=== PATIENT | male | born 1985 | race Hispanic/Latino ===

== ENCOUNTER 2019-11-21 23:24 | Emergency (ER) | payer SELFPAY ==
--- NOTE | 2019-11-22 00:59 | ER ---
Nurse's Notes [facility] Name: Charles Wood Age: 34 yrs Sex: Male : 1985 Arrival Date: 11/21/2019 Time: 23:25 Bed 12 Private MD: Diagnosis: Streptococcal pharyngitis Presentation: 11/20 23:34 Acuity: DIVYA 3 sg 23:34 Chief complaint: Patient states: I have some swelling in my throat and felt like was sg going to pass out and had some shortness of breath, reports low grade fever at home. Coronavirus screen: Surgical mask placed on patient. Patient moved to private room, placed in contact and droplet isolation with eye protection until further assessment. Patient denies a cough. Patient reports shortness of breath or difficulty breathing. Patient reports a measured and/or subjective temperature greater than 100.4F. Patient denies travel on a cruise ship or to a country the [facility] currently lists as an affected area. Patient denies contact with known and/or suspected case of COVID-19. Ebola Screen: Patient negative for fever greater than or equal to 101.5 degrees Fahrenheit, and additional compatible Ebola Virus Disease symptoms Patient denies exposure to infectious person. Patient denies travel to an Ebola-affected area in the 21 days before illness onset. No symptoms or risks identified at this time. Initial Sepsis Screen: Does the patient meet any 2 criteria? No. Patient's initial sepsis screen is negative. Does the patient have a suspected source of infection? No. Patient's initial sepsis screen is negative. Risk Assessment: Do you want to hurt yourself or someone else? Patient reports no desire to harm self or others. Onset of symptoms was November 22, 2019. Care prior to arrival: None. Transition of care: patient was not received from another setting of care. 23:34 Method Of Arrival: Ambulatory sg Historical: - Allergies: 23:33 No Known Allergies; sg - Home Meds: 23:33 None [Active]; sg - PMHx: 23:33 None; sg - PSHx: 23:33 None; sg - Immunization history:: Adult Immunizations up to date. - Social history:: Smoking status: Reported history of juuling and/or vaping. Screenin:33 Abuse screen: Denies threats or abuse. Denies injuries from another. Nutritional sg screening: No deficits noted. Tuberculosis screening: No symptoms or risk factors identified. Never had TB. Fall Risk None identified. Assessment: 23:33 General: Appears in no apparent distress. well groomed, well developed, well nourished, sg Behavior is calm, cooperative, appropriate for age. Pain: Complains of pain in sore throat Quality of pain is described as aching, sore throat. Neuro: Level of Consciousness is awake, alert, obeys commands, Oriented to person, place, time, Entry Level Mechanical Engineer are equal bilaterally Speech is normal, Facial symmetry appears normal. Cardiovascular: Capillary refill is brisk in bilateral fingers Patient's skin is warm and dry. Chest pain is denied. Respiratory: Airway is patent Respiratory effort is even, unlabored, Respiratory pattern is regular, symmetrical. GI: Abdomen is round non-distended. : No signs and/or symptoms were reported regarding the genitourinary system. EENT: Nares are clear bilaterally Oral mucosa is moist. Throat is reddened has enlarged tonsils bilaterally. Derm: Skin is pink, warm \\T\\ dry. Musculoskeletal: Circulation, motion, and sensation intact. Range of motion: intact in all extremities. 23:40 Reassessment: pt requesting that a COVID 19 swab be obtained while a flu and strep swab sg are sent. pt educated that he will need to see the provider as a COVID 19 swab is a specific test as opposed to having the COVID 19 swab, due to guidelines for treatment. pt stated understanding. Respiratory: Reports shortness of breath on exertion. 11/21 00:55 Reassessment: pt family member on speaker phone requesting this patient get a shot of sg abx instead of a prescription. educated pt on order for abx here in the ED and a script to take at home, pt stated understanding, pt family states " yes you can get a shot. you dont have to take pills.". 00:56 Reassessment: pt requesting a COVID 19 swab at this time, notified, sg speaking with pt at this time. pt family on speaker phone reports " so you cant test him here because you know he has strep? youre full of shit." pt provided with discharge instructions and testing options posted on the [facility] website. pt dc to home as ordered. Vital Signs: 11/20 23:33 BP 132 / 74; Pulse 115; Resp 26; Temp 99.4; Pulse Ox 95% on R/A; Weight 131.54 kg; sg Height 5 ft. 11 in. (180.34 cm); 11/21 01:00 BP 130 / 70; Pulse 97; Resp 18; Temp 98.8; Pulse Ox 99% on R/A; sg 11/20 23:33 Body Mass Index 40.45 (131.54 kg, 180.34 cm) sg ED Course: 11/20 23:25 Patient arrived in ED. ds1 23:32 Arm band placed on. sg 23:34 Triage completed. sg 23:35 Flu and/or RSV swab sent to lab. Strep swab sent to lab. sg 23:40 Patient has correct armband on for positive identification. Bed in low position. Call sg light in reach. Side rails up X2. Pulse ox on. NIBP on. pt placed to recliner, awaiting ED provider evaluation. 11/21 00:02 Keaton Paez MD is Attending Physician. tw4 00:02 Maikel Hernandez RN is Primary Nurse. sg 01:00 No provider procedures requiring assistance completed. Patient did not have IV access sg during this emergency room visit. Administered Medications: 01:04 Drug: Augmentin 875 mg Route: PO; sg Outcome: 00:59 Discharge ordered by . tw4 01:00 Discharged to home ambulatory. sg 01:00 Condition: good 01:00 Instructed on discharge instructions, follow up and referral plans. safety practices. 01:08 Patient left the ED. sg Signatures: Maikel Hernandez RN RN Patricia Muniz ds1 Keaton Paez MD MD tw4 Corrections: (The following items were deleted from the chart) 01:20 01:19 Patient left the ED. sg sg 01:32 11/20 23:33 EENT: No signs and/or symptoms were reported regarding the EENT system. sg sg
--- NOTE | 2019-11-22 00:59 | EDPHYS ---
Physician Documentation [facility] Name: Charles Wood Age: 34 yrs Sex: Male : 1985 Arrival Date: 11/21/2019 Time: 23:25 Bed 12 Private MD: ED Physician Keaton Paez Historical: - Allergies: 11/20 23:33 No Known Allergies; sg - Home Meds: 23:33 None [Active]; sg - PMHx: 23:33 None; sg - PSHx: 23:33 None; sg - Immunization history:: Adult Immunizations up to date. - Social history:: Smoking status: Reported history of juuling and/or vaping. Vital Signs: 23:33 BP 132 / 74; Pulse 115; Resp 26; Temp 99.4; Pulse Ox 95% on R/A; Weight 131.54 kg; sg Height 5 ft. 11 in. (180.34 cm); 11/21 01:00 BP 130 / 70; Pulse 97; Resp 18; Temp 98.8; Pulse Ox 99% on R/A; sg 11/20 23:33 Body Mass Index 40.45 (131.54 kg, 180.34 cm) MDM: 00:09 Patient medically screened. tw4 11/20 23:36 Order name: Flu sg 11/20 23:36 Order name: Strep; Complete Time: 00:56 11/21 00:56 Interpretation: Abnormal: GP A STREP SC \T\nbsp; GROUP A STREP SCREEN-- \T\nbsp; \T\nbsp; tw4 POSITIVE. Administered Medications: 01:04 Drug: Augmentin 875 mg Route: PO; sg Disposition: 11/22/19 00:59 Discharged to Home. Impression: Streptococcal pharyngitis. - Condition is Stable. - Discharge Instructions: Pharyngitis, Strep Throat. - Prescriptions for Augmentin 875- 125 mg Oral Tablet - take 1 tablet by ORAL route every 12 hours for 10 days; 20 tablet. - Work release form, Medication Reconciliation Form, Thank You Letter, Antibiotic Education, Prescription Opioid Use form. - Follow up: Private Physician; When: Upon discharge from the Emergency Department; Reason: Recheck today's complaints, Continuance of care, Re-evaluation by your physician. - Problem is new. - Symptoms have improved. Signatures: Dispatcher [employer] EDMaikel Bethea RN RN sg Keaton Paez MD MD tw4 Corrections: (The following items were deleted from the chart) 01:08 00:59 11/22/2019 00:59 Discharged to Home. Impression: Streptococcal pharyngitis. sg Condition is Stable. Forms are Medication Reconciliation Form, Thank You Letter, Antibiotic Education, Prescription Opioid Use. Follow up: Private Physician; When: Upon discharge from the Emergency Department; Reason: Recheck today's complaints, Continuance of care, Re-evaluation by your physician. Problem is new. Symptoms have improved. tw4 01:19 01:08 11/22/2019 00:59 Discharged to Home. Impression: Streptococcal pharyngitis. sg Condition is Stable. Discharge Instructions: Pharyngitis, Strep Throat. Prescriptions for Augmentin 875-125 mg Oral Tablet - take 1 tablet by ORAL route every 12 hours for 10 days; 20 tablet. and Forms are Thank You Letter, Antibiotic Education, Prescription Opioid Use, Medication Reconciliation Form, Work release form. Follow up: Private Physician; When: Upon discharge from the Emergency Department; Reason: Recheck today's complaints, Continuance of care, Re-evaluation by your physician. Problem is new. Symptoms have improved. sg
[2019-11-22] MEDS ORDERED: AMOX/K CLAV 875 MG TAB ONE (01:20)
[2019-11-22 01:57] VITALS: BP 130/70; TEMP 98.8; O2SAT 99
== END 2019-11-22 01:19 | disposition home or self-care (01) ==
LOC: ER 23:24
DX: J02.0 Streptococcal pharyngitis (principal); F17.290 Nicotine dependence, other tobacco product, uncomplicated
CPT/HCPCS: 87081; 87804; 99284

== ENCOUNTER 2024-01-03 01:32 | Emergency (ER) | payer SELFPAY ==
--- OUTSIDE RECORDS SUMMARY | 2024-01-03 01:35 | XMS REPORT | Continuity of Care Document ---
Author Name Unknown Address [address] [facility] [address] th[address] Address [address] [facility] [address] [place] [address] Care Team Providers Care [employer] Installer Name Role Phone Pcp, Patient Does Not Have A Primary Care Physic adrienne SYLVIA WEEKS Attending Clinician Unavailab Sylvia Sutton DO Attending Clinician [phone] Allergies, Adverse Reactions, Alerts Allergy Name Allergy Type Status Severity Reaction(s) Onset Date Inactive Date Treating Clinician Comments Source NO KNOWN ALLERGIE S Drug Class Active [facility] Social History Social Habit Start Date Stop Date Quantity Comments Source Exposure to SARS-CoV-2 (event) 2022-07-05 00:00:00 2022-07-15 01:03:00 Not sure [facility] Sex Assigned At 1985 00:00:00 1985 00:00:00 [facility] Smoking Status Start Date Stop Date Source Tobacco smoking consumption unknown [facility] Medications Ordered Medication Name Filled Medication Name Start Date Stop Date Current Medication? Ordering Clinician Indication Dosage Frequency Signature (SIG) Comments Components Source albuterol 90 mcg/actuati on inhaler 07-15 00:00: 00 07-15 00:00 :00 No [id number] 2{puff} Inhale 2 Puffs every 4 (four) hours as needed for Wheezing or Shortness of Breath. [facility] bromphenira mine-pseudo ephedrine-D M (BROMFED DM) 2-30-10 mg/5 mL syrup 07-15 00:00: 00 07-15 00:00 :00 No [id number] 5mL Take 5 mL by mouth 4 (four) times daily as needed for Cold symptoms or Cough. [facility] Vital Signs Vital Name Observation Time Observation Value Andre presley Systolic blood pressure 2022-07-15 06:55:00 139 mm[Hg] [facility] Diastolic blood pressure 2022-07-15 06:55:00 103 mm[Hg] [facility] Heart rate 2022-07-15 06:55:00 100 /min [facility] Body temperature 2022-07-15 06:55:00 37.61 Kaycee [facility] Respiratory rate 2022-07-15 06:55:00 18 /min [facility] Body height 2022-07-15 06:55:00 180.3 cm [facility] Body weight 2022-07-15 06:55:00 149.687 kg [facility] BMI 2022-07-15 06:55:00 46.03 kg/m2 [facility] Oxygen saturation in Arterial blood by Pulse oximetry 2022-07-15 06:55:00 97 /min [facility] Procedures Procedure Date / Time Performed Performing Clinicia n Source NOTICE OF PRIVACY PRACTICES 2022-07-15 06:53:57 Doctor Unassigned, [place] [facility] CONSENT/REFUSAL FOR DIAGNOSIS AND TREATMENT 2022-07-15 06:52:58 Doctor Unassigned, [place] [facility] Encounters Start Date/Time End Date/Time Encounter Type Admission Type Attending Clinicians Care Facility Care Department Encounter ID Source 2023-03-20 14:38:47 2023-03-20 14:38:[address] [facility] [id number] Alfred Saba William 2022-07-15 01:06:00 2022-07-15 01:22:00 Emergency X SYLVIA WEEKS [facility] ERT [id number] [facility] 2022-07-15 01:06:00 2022-07-15 01:22:00 Emergency Sylvia Weeks [facility] [id number] [facility]
[2024-01-03] MEDS ORDERED: KETOROLAC 30 MG/ML INJ ONE (02:16)
[2024-01-03] MEDS ORDERED: ONDANSETRON 4 MG/2 ML VIAL ONE (02:16)
[2024-01-03] MEDS ORDERED: FAMOTIDINE 20 MG/2 ML VIAL IV ONE (02:17)
[2024-01-03] MEDS ORDERED: MORPHINE 4 MG/ML SYR ONE (02:17)
[2024-01-03] MEDS ORDERED: NA CHLORIDE 0.9% 2,000 ML ONE (02:17)
[2024-01-03 02:35] LABS: Absolute Basophils 0.1 K/uL (0-0.5); Absolute Eosinophils 0.6 K/uL (0-0.5); Absolute Lymphocytes (CBC) 2.8 K/uL (0.7-4.9); Absolute Monocytes 0.6 K/uL (0.1-1.3); Absolute Neutrophil 6.1 K/uL (1.8-8.0); Basophils % 0.9 % (0-1.3); Eosinophils % 5.9 % (0-4.4); Hematocrit 44.3 % (39.6-49.0); Hemoglobin 15.1 g/dL (13.6-17.9); Lymphocytes % 27.2 % (15.3-44.8); MCH 30.5 pg (27.0-35.0); MCHC 34.2 g/dL (32.0-36.0); MCV 89.2 fL (80-100); Monocytes % 5.9 % (3.3-12.3); Neutrophils % 60.1 % (41.7-73.7); Nucleated Red Blood Cells % 0.1 % (0-0); Platelets 187 thou/uL (152-406); RBC Red Blood Cell Count 4.97 M/uL (4.33-5.43); Red Cell Distribution Width 12.7 % (12.1-15.2)
[2024-01-03 02:43] LABS: Specific Gravity > 1.030 (1.005-1.030); Sqamous Epithelial None Seen /HPF (None Seen); Urine Bacteria None Seen /HPF (<20); Urine Bilirubin NEGATIVE (Negative); Urine Blood Negative (Negative); Urine Clarity Clear (Clear); Urine Color Colorless (Yellow); Urine Culture Reflex Order NOT NEEDED; Urine Glucose 4+ (Over) (Negative); Urine Ketones NEGATIVE (Negative); Urine Microscopic Reflex YN ORDER UMIC; Urine Mucus Slight /HPF (None Seen); Urine Nitrite NEGATIVE (Negative); Urine Protein NEGATIVE (Negative); Urine RBC <5 /HPF (None Seen); Urine Urobilinogen Normal (Normal); Urine WBC <5 /HPF (<5); Urine pH 5.5 (5.0-7.0)
[2024-01-03 02:58] LABS: Albumin 3.4 g/dL (3.4-5.0); Albumin/Globulin Ratio 0.8 (1.1-1.8); Anion Gap 7.8 mEq/L (5.0-15.0); Bilirubin Total 0.5 mg/dL (0.2-1.0); Globulin 4.1 g/dL (2.3-3.5); Potassium 3.8 mEq/L (3.5-5.1); Protein, Total 7.5 g/dL (6.4-8.2)
[2024-01-03] MEDS ORDERED: INSULIN REGULAR (HUMAN) 100 UNIT/ML ONE (04:43)
--- NOTE | 2024-01-03 05:21 | EDPHYS ---
Physician Documentation [facility] Name: Charles Wood Age: 38 yrs Sex: Male : 1985 Arrival Date: 01/03/2024 Time: 01:32 Bed 7 Private MD: ED Physician Pablo Peraza HPI: 01/02 01:43 This 38 yrs old Male presents to ER via Unassigned with complaints of sp4 Abdominal Pain, Dizziness, General Weakness, DRY MOUTH, Urinary Retention, Low Back Pain. 06:32 38-year-old male presents with complaint of lower back pain , feeling suprapubic pain sp4 as well. . Historical: - Allergies: :47 No Known Allergies; ss - Home Meds: :47 None [Active]; ss - PMHx: :47 None; ss - PSHx: :47 None; ss - Immunization history:: Client reports having NOT received the Covid vaccine. - Infectious Disease History:: Denies. - Social history:: Smoking status: Reported history of juuling and/or vaping. - Family history:: not pertinent. ROS: 06:32 Constitutional: Negative for fever, chills, and weight loss, positive for back pain sp4 and suprapubic pain 06:32 All other systems are negative, Exam: 06:32 Constitutional: This is a well developed, well nourished patient who is awake, alert, sp4 and in no acute distress. Head/Face: Normocephalic, atraumatic. Eyes: Pupils equal round and reactive to light, extra-ocular motions intact. Lids and lashes normal. Conjunctiva and sclera are not injected. Cornea within normal limits. Periorbital areas with no swelling, redness, or edema. ENT: Nares patent. No nasal discharge, no septal abnormalities noted. Tympanic membranes are normal and external auditory canals are clear. Oropharynx with no redness, swelling, or masses, exudates, or evidence of obstruction, uvula midline. Mucous membranes moist. Neck: Trachea midline, no thyromegaly or masses palpated, and no cervical lymphadenopathy. Supple, full range of motion without nuchal rigidity, or vertebral point tenderness. Chest/axilla: Normal chest wall appearance and motion. Nontender with no deformity. No lesions are appreciated. Cardiovascular: Regular rate and rhythm with a normal S1 and S2. No gallops, murmurs, or rubs. Normal PMI, no JVD. No pulse deficits. Respiratory: Lungs have equal breath sounds bilaterally, clear to auscultation and percussion. No rales, rhonchi or wheezes noted. No increased work of breathing, no retractions or nasal flaring. Abdomen/GI: Soft, with normal bowel sounds. No distension or tympany. No guarding or rebound. No evidence of tenderness throughout. Back: No spinal tenderness. No costovertebral tenderness. Skin: Warm, dry with normal turgor. Normal color with no rashes, no lesions, and no evidence of cellulitis. MS/ Extremity: Pulses equal, no cyanosis. Neurovascular intact. Full, normal range of motion. Neuro: Awake and alert, GCS 15, oriented to person, place, time, and situation. Cranial nerves II-XII grossly intact. Motor strength 5/5 in all extremities. Sensory grossly intact. Psych: Awake, alert, with orientation to person, place and time. Behavior, mood, and affect are within normal limits Vital Signs: 01:45 BP 141 / 103; Pulse 82; Resp 16; Pulse Ox 100% ; Weight 149.69 kg; Height 5 ft. 11 in. ss ; Pain 8/10; 03:26 BP 129 / 78; Pulse 78; Resp 18; Temp 97.8; Pulse Ox 97% ; Pain 4/10; bm8 04:30 BP 132 / 88; Pulse 79; Resp 19; Pulse Ox 95% ; jj7 05:30 BP 124 / 86; Pulse 71; Resp 16; Temp 97.3; Pulse Ox 98% ; jj7 01:45 Body Mass Index 46.03 (149.69 kg, 180.34 cm) ss 01:45 Pain Scale: Adult ss 03:26 Pain Scale: Adult bm8 Wilfred Coma Score: 03:26 Eye Response: spontaneous(4). Motor Response: obeys commands(6). Verbal Response: bm8 oriented(5). Total: 15. 06:32 Eye Response: spontaneous(4). Motor Response: obeys commands(6). Verbal Response: sp4 oriented(5). Total: 15. MDM: 01:43 Patient medically screened. sp4 05:04 ED course: EXAMINATION: CTABDOMEN PELVIS WITH IV CONTRAST INDICATION: Male, 38 years sp4 old, ABD PAIN COMPARISON(S): None. TECHNIQUE: CT acquisition of the abdomen and pelvis following the administration of IV contrast. Coronal and sagittal reformatted images provided. This exam was performed according to departmental dose-optimization program which includes automated exposure control, adjustment of the mA and/or kV according to patient size, and/or use of iterative reconstruction technique. FINDINGS: SUPPORTIVE DEVICES: None. LOWER CHEST: Unremarkable. ABDOMEN AND PELVIS: Liver: Diffuse hypoenhancement relative to the spleen. Mildly enlarged. Gallbladder and bile ducts: Normal. Pancreas: Normal. Spleen: Normal. Adrenal glands: Normal. Kidneys and ureters: Normal. Bladder: Normal. Reproductive organs: Unremarkable as visualized. GI tract: Normal caliber without wall thickening. Normal appendix. Vessels: Unremarkable. Lymph nodes: No evident adenopathy. Peritoneum: No evidence of ascites, fluid collection, or free air. Abdominal wall: No significant hernia. MUSCULOSKELETAL: No acute osseous abnormality. Degenerative change of the spine. IMPRESSION: 1. No acute abdominopelvic finding. 2. Probable hepatic steatosis. Electronically signed by: Maikel Caceres MD 01/03/2024 04:41. 06:34 Differential diagnosis: generalized weakness, head injury, hypovolemia, vertigo. Data sp4 reviewed: vital signs, nurses notes, lab test result(s), radiologic studies, CT scan. Consideration of Admission/Observation Escalation of care including admission/observation considered. ED course: New onset diabetes. Advised close follow up. . 01/02 01:55 Order name: CBC with Diff; Complete Time: 03:00 [facility] 01/02 01:55 Order name: CMP; Complete Time: 04:22 sp4 01/02 01:55 Order name: Lipase; Complete Time: 04:22 sp4 01/02 01:55 Order name: Urinalysis w/ reflexes; Complete Time: 03:00 4 01/02 01:59 Order name: Glucose, Ancillary Testing; Complete Time: 02:01 EDOR 01/02 04:55 Order name: Glucose, Ancillary Testing; Complete Time: 05:04 EDOR 01/02 02:02 Order name: CT Abd/Pelvis - IV Contrast Only 4 01/02 01:55 Order name: IV Saline Lock; Complete Time: 02:28 sp4 01/02 01:55 Order name: Labs collected and sent; Complete Time: 02:28 sp4 01/02 05:16 Order name: Accucheck Blood Glucose; Complete Time: 05:37 sp4 Administered Medications: 02:27 Drug: Ketorolac IVP 30 mg IVP once Route: IVP; Site: right antecubital; jj7 03:29 Follow up: Response: No adverse reaction bm8 02:27 Drug: morphine IVP or IV 4 mg IVP once over 4 mins Route: IVP; Infused Over: 4 mins; jj7 Site: right antecubital; 03:29 Follow up: Response: No adverse reaction bm8 02:27 Drug: Ondansetron IVP 4 mg IVP once; over 2 minutes Route: IVP; Site: right antecubital;jj7 03:29 Follow up: Response: No adverse reaction bm8 02:27 Drug: NS 0.9% IV 1000 ml IV at 1 bolus Per protocol; 1000 mL bolus Route: IV; Rate: 1 jj7 bolus; Site: right antecubital; 03:50 Follow up: IV Status: Completed infusion jj7 02:28 Drug: NS 0.9% IV 1000 ml IV at 1 bolus Per protocol; 1000 mL bolus Route: IV; Rate: 1 jj7 bolus; Site: right antecubital; 03:29 Follow up: Response: No adverse reaction; IV Status: Completed infusion; IV Intake: bm8 1000ml 02:28 Drug: Famotidine IVP 20 mg IVP once; dilute with 10 mL 0.9% NaCl; give over 2 minutes jj7 Route: IVP; Site: right antecubital; 03:29 Follow up: Response: No adverse reaction bm8 04:45 Drug: Insulin Regular Human IVP 10 units IVP once {Co-Signature: cony (Johanna Ge bm8 RN).} Route: IVP; Site: right antecubital; 05:46 Follow up: Response: Marked relief of symptoms; Blood sugar is lowered jj7 Disposition Summary: 01/03/24 05:21 Discharge Ordered Notes: Please see pet supplies salesperson for diabetes management Location: Home sp4 Problem: new sp4 Symptoms: have improved sp4 Condition: Stable sp4 Diagnosis - Other specified diabetes mellitus with hyperglycemia sp4 - New diagnosis diabetes mellitus type 2 with hyperglycemia, acute lower back pain sp4 Followup: sp4 - With: Timur Wise DO - When: 7 - 10 days - Reason: Recheck today's complaints Discharge Instructions: - Discharge Summary Sheet sp4 - Diabetes Mellitus and Nutrition, Adult sp4 Forms: - Patient Portal Instructions sp4 Prescriptions: - Glipizide 5 mg Oral tablet - take 1 tablet ORAL route once daily before a meal; 30 tablet; Refills: 0, sp4 Product Selection Permitted - Metformin 1,000 mg Oral tablet - take 1 tablet ORAL route every 12 hours with morning and evening meals; 180 sp4 tablet; Refills: 0, Product Selection Permitted Signatures: Dispatcher [employer] EDJohanna Brown, RN RN ss Ray Hutton RN RN jj7 Pablo Peraza MD MD sp4 Mg Zavala RN RN bm8 Johanna Ge RN ss Corrections: (The following items were deleted from the chart) 01:56 01:56 CBC+H.LAB.BRZ ordered. EDMS EDMS 01:56 01:56 COMPREHENSIVE METABOLIC PANEL+C.LAB.BRZ ordered. EDMS EDMS 01:56 01:56 LIPASE+C.LAB.BRZ ordered. EDMS EDMS 01:56 01:56 Urinalysis+U.LAB.BRZ ordered. EDMS EDMS 02:02 02:02 Abdomen Pelvis W Con+CT.RAD.BRZ ordered. EDMS EDMS
--- NOTE | 2024-01-03 05:21 | ER ---
Nurse's Notes [facility] Name: Charles Wood Age: 38 yrs Sex: Male : 1985 Arrival Date: 01/03/2024 Time: 01:32 Bed 7 Private MD: Diagnosis: Other specified diabetes mellitus with hyperglycemia;New diagnosis diabetes mellitus type 2 with hyperglycemia, acute lower back pain Presentation: 01/02 01:45 Chief complaint: Patient states: excessive thirst, urination and flank pain that began ss 2 weeks ago and has been getting progressively worse. Coronavirus screen: Client denies travel out of the [place] in the last 14 days. Ebola Screen: Patient denies exposure to infectious person. Patient denies travel to an Ebola-affected area in the 21 days before illness onset. Initial Sepsis Screen: Does the patient meet any 2 criteria? No. Patient's initial sepsis screen is negative. Does the patient have a suspected source of infection? No. Patient's initial sepsis screen is negative. Risk Assessment: Do you want to hurt yourself or someone else? Patient reports no desire to harm self or others. Onset of symptoms was December 20, 2023. 01:45 Method Of Arrival: Ambulatory ss 01:45 Acuity: DIVYA 2 ss Historical: - Allergies: 01:47 No Known Allergies; ss - Home Meds: 01:47 None [Active]; ss - PMHx: 01:47 None; ss - PSHx: 01:47 None; ss - Immunization history:: Client reports having NOT received the Covid vaccine. - Infectious Disease History:: Denies. - Social history:: Smoking status: Reported history of juuling and/or vaping. - Family history:: not pertinent. Screenin:26 [facility] ED Fall Risk Assessment (Adult) History of falling in the last 3 months, bm8 including since admission No falls in past 3 months (0 pts) Confusion or Disorientation No (0 pts) Intoxicated or Sedated No (0 pts) Impaired Gait No (0 pts) Mobility Assist Device Used No (0 pt) Altered Elimination No (0 pt) Score/Fall Risk Level 0 - 2 = Low Risk Oriented to surroundings, Maintained a safe environment, Educated pt \T\ family on fall prevention, incl call for assistance when getting out of bed, Assessed \T\ reinforced patient's understanding of fall precautions, Hourly rounding (assess needs \T\ fall precautionary measures) done, Used ambulatory aids as needed (educated on \T\ assisted with), Used gait belt as appropriate. Abuse screen: Denies threats or abuse. Nutritional screening: No deficits noted. Tuberculosis screening: No symptoms or risk factors identified. Assessment: 02:20 General: Appears in no apparent distress. comfortable, Behavior is calm, cooperative, jj7 appropriate for age. Pain: Complains of pain in low back area, left low back and right low back. GI: Bowel sounds present X 4 quads. Abd is soft and non tender X 4 quads. 03:26 Reassessment: Patient appears in no apparent distress at this time. No changes from bm8 previously documented assessment. Patient and/or family updated on plan of care and expected duration. Pain level reassessed. Patient is alert, oriented x 3, equal unlabored respirations, skin warm/dry/pink. Vital Signs: 01:45 BP 141 / 103; Pulse 82; Resp 16; Pulse Ox 100% ; Weight 149.69 kg; Height 5 ft. 11 in. ss ; Pain 8/10; 03:26 BP 129 / 78; Pulse 78; Resp 18; Temp 97.8; Pulse Ox 97% ; Pain 4/10; bm8 04:30 BP 132 / 88; Pulse 79; Resp 19; Pulse Ox 95% ; jj7 05:30 BP 124 / 86; Pulse 71; Resp 16; Temp 97.3; Pulse Ox 98% ; jj7 01:45 Body Mass Index 46.03 (149.69 kg, 180.34 cm) ss 01:45 Pain Scale: Adult ss 03:26 Pain Scale: Adult bm8 Nesmith Coma Score: 03:26 Eye Response: spontaneous(4). Motor Response: obeys commands(6). Verbal Response: bm8 oriented(5). Total: 15. 06:32 Eye Response: spontaneous(4). Motor Response: obeys commands(6). Verbal Response: sp4 oriented(5). Total: 15. ED Course: 01:37 Patient arrived in ED. jj6 01:42 Pablo Peraza MD is Attending Physician. sp4 01:47 Triage completed. ss 01:47 Arm band placed on left wrist. ss 02:14 Mg Zavala, RN is Primary Nurse. bm8 02:25 Inserted saline lock: 18 gauge in right antecubital area, using aseptic technique. jj7 Blood collected. Flushed with 10 mL NS. 02:28 Patient has correct armband on for positive identification. Placed in gown. Bed in low jj7 position. Call light in reach. Side rails up X2. Adult w/ patient. Provided Education on: USE OF CALL ALVARADO. 02:28 CBC with Diff Sent. jj7 02:28 CMP Sent. jj7 02:28 Lipase Sent. jj7 02:28 Urinalysis w/ reflexes Sent. jj7 03:26 Client placed on continuous cardiac and pulse oximetry monitoring. NIBP monitoring bm8 applied. ekg monitor tech on. Pulse ox on. NIBP on. Door closed. Lights dimmed. Warm blanket given. Pillow given. Verbal reassurance given. Head of bed elevated. 03:26 No provider procedures requiring assistance completed. bm8 03:38 CT Abd/Pelvis - IV Contrast Only In Process Unspecified. EDMS 05:18 Timur Wise DO is Referral Physician. sp4 05:43 IV discontinued, intact, bleeding controlled, No redness/swelling at site. Pressure jj7 dressing applied. Administered Medications: 02:27 Drug: Ketorolac IVP 30 mg IVP once Route: IVP; Site: right antecubital; jj7 03:29 Follow up: Response: No adverse reaction bm8 02:27 Drug: morphine IVP or IV 4 mg IVP once over 4 mins Route: IVP; Infused Over: 4 mins; jj7 Site: right antecubital; 03:29 Follow up: Response: No adverse reaction bm8 02:27 Drug: Ondansetron IVP 4 mg IVP once; over 2 minutes Route: IVP; Site: right antecubital;jj7 03:29 Follow up: Response: No adverse reaction bm8 02:27 Drug: NS 0.9% IV 1000 ml IV at 1 bolus Per protocol; 1000 mL bolus Route: IV; Rate: 1 jj7 bolus; Site: right antecubital; 03:50 Follow up: IV Status: Completed infusion jj7 02:28 Drug: NS 0.9% IV 1000 ml IV at 1 bolus Per protocol; 1000 mL bolus Route: IV; Rate: 1 jj7 bolus; Site: right antecubital; 03:29 Follow up: Response: No adverse reaction; IV Status: Completed infusion; IV Intake: bm8 1000ml 02:28 Drug: Famotidine IVP 20 mg IVP once; dilute with 10 mL 0.9% NaCl; give over 2 minutes jj7 Route: IVP; Site: right antecubital; 03:29 Follow up: Response: No adverse reaction bm8 04:45 Drug: Insulin Regular Human IVP 10 units IVP once {Co-Signature: ss (Johanna Ge8 RN).} Route: IVP; Site: right antecubital; 05:46 Follow up: Response: Marked relief of symptoms; Blood sugar is lowered jj7 Medication: 03:26 VIS not applicable for this client. bm8 Intake: 03:29 IV: 1000ml; Total: 1000ml. bm8 Outcome: 05:21 Discharge ordered by . [email or web address] 05:43 Discharged to home ambulatory, with significant other, jj7 05:43 Condition: improved 05:43 Discharge instructions given to patient, Instructed on discharge instructions, follow up and referral plans. medication usage, Demonstrated understanding of instructions, follow-up care, medications, Prescriptions given X 2, 05:45 Patient left the ED. jj7 Signatures: Dispatcher [employer] EDMS Johanna Ge, TEE RN ss Kenya Diane jj6 Ray Hutton RN RN jj7 Pablo Peraza MD MD sp4 Mg Zavala RN RN bm8 Johanna Ge RN
[2024-01-03 06:15] VITALS: BP 124/86; TEMP 97.3; O2SAT 98
--- NOTE | 2024-01-05 13:05 | RAD REPORT ---
EXAM DESCRIPTION: CT ABDOMEN PELVIS WITH IV CONTRAST CLINICAL HISTORY: Male, 38 years old, ABD PAIN COMPARISON: None. TECHNIQUE: CT acquisition of the abdomen and pelvis following the administration of IV contrast. Cor onal and sagittal reformatted images provided. This exam was performed according to departmental dose -optimization program which includes automated exposure control, adjustment of the mA and/or kV accor ding to patient size, and/or use of iterative reconstruction technique. FINDINGS: SUPPORTIVE DEVICES: None. LOWER CHEST: Unremarkable. ABDOMEN AND PELVIS: Liver: Diffuse hypoenhancement relative to the spleen. Mildly enlarged. Gallbladder and bile ducts: Normal. Pancreas: Normal. Spleen: Normal. Adrenal glands: Normal. Kidneys and ureters: Normal. Bladder: Normal. Reproductive organs: Unremarkable as visualized. GI tract: Normal caliber without wall thickening. Normal appendix. Vessels: Unremarkable. Lymph nodes: No evident adenopathy. Peritoneum: No evidence of ascites, fluid collection, or free air. Abdominal wall: No significant hernia. MUSCULOSKELETAL: No acute osseous abnormality. Degenerative change of the spine. IMPRESSION: 1. No acute abdominopelvic finding. 2. Probable hepatic steatosis. Electronically signed by: Maikel Caceres MD 01/03/2024 04:41 AM CDT RP Due to temporary technical issues with the PACS/Fluency reporting system, reports are being signed by the in house radiologist without review as a courtesy to ensure prompt reporting. The interpreting r adiologist is fully responsible for the content of the report.
== END 2024-01-03 05:45 | disposition home or self-care (01) ==
LOC: ER 01:32
DX: E11.65 Type 2 diabetes mellitus with hyperglycemia (principal); M54.50 Low back pain, unspecified
CPT/HCPCS: 36415; 74177; 80053; 81001; 82947; 83690; 85025; 96361; 96374; 96375; 99285; J2405; J7030; Q9967

== ENCOUNTER 2024-03-22 19:47 | Emergency (ER) | payer SELFPAY ==
--- OUTSIDE RECORDS SUMMARY | 2024-03-22 19:48 | XMS REPORT | Continuity of Care Document ---
Author Name Unknown Address [address] [place] [address] [facility] [address] [place] [address] Care Team Providers Care Movie Writer Name Role Phone Pcp, Patient Does Not Have A Primary Care Physic adrienne SYLVIA WEEKS Attending Clinician Unavailab Sylvia Sutton DO Attending Clinician [phone] Allergies, Adverse Reactions, Alerts Allergy Name Allergy Type Status Severity Reaction(s) Onset Date Inactive Date Treating Clinician Comments Source NO KNOWN ALLERGIE S Drug Class Active [facility] Social History Social Habit Start Date Stop Date Quantity Comments Source Exposure to SARS-CoV-2 (event) 2022-07-05 00:00:00 2022-07-15 01:03:00 Not sure [facility] Sex Assigned At 1985 00:00:00 1985 00:00:00 [facility] Smoking Status Start Date Stop Date Source Tobacco smoking consumption unknown [facility] Medications Ordered Medication Name Filled Medication Name Start Date Stop Date Current Medication? Ordering Clinician Indication Dosage Frequency Signature (SIG) Comments Components Source albuterol 90 mcg/actuati on inhaler 07-15 00:00: 00 07-15 00:00 :00 No [id number] 2{puff} Inhale 2 Puffs every 4 (four) hours as needed for Wheezing or Shortness of Breath. [facility] bromphenira mine-pseudo ephedrine-D M (BROMFED DM) 2-30-10 mg/5 mL syrup 07-15 00:00: 00 07-15 00:00 :00 No [id number] 5mL Take 5 mL by mouth 4 (four) times daily as needed for Cold symptoms or Cough. [facility] Vital Signs Vital Name Observation Time Observation Value Andre presley Systolic blood pressure 2022-07-15 06:55:00 139 mm[Hg] [facility] Diastolic blood pressure 2022-07-15 06:55:00 103 mm[Hg] [facility] Heart rate 2022-07-15 06:55:00 100 /min [facility] Body temperature 2022-07-15 06:55:00 37.61 Kaycee [facility] Respiratory rate 2022-07-15 06:55:00 18 /min [facility] Body height 2022-07-15 06:55:00 180.3 cm [facility] Body weight 2022-07-15 06:55:00 149.687 kg [facility] BMI 2022-07-15 06:55:00 46.03 kg/m2 [facility] Oxygen saturation in Arterial blood by Pulse oximetry 2022-07-15 06:55:00 97 /min [facility] Procedures Procedure Date / Time Performed Performing Clinicia n Source NOTICE OF PRIVACY PRACTICES 2022-07-15 06:53:57 Doctor Unassigned, [place] [facility] CONSENT/REFUSAL FOR DIAGNOSIS AND TREATMENT 2022-07-15 06:52:58 Doctor Unassigned, [place] [facility] Encounters Start Date/Time End Date/Time Encounter Type Admission Type Attending Clinicians Care Facility Care Department Encounter ID Source 2024-01-06 14:06:15 2024-01-06 14:06:[address] [facility] [id number] Alfred Thomas 2023-03-20 14:38:47 2023-03-20 14:38:[address] [facility] [id number] Alfred Thomas 2022-07-15 01:06:00 2022-07-15 01:22:00 Emergency X SYLVIA WEEKS [facility] ERT [id number] [facility] 2022-07-15 01:06:00 2022-07-15 01:22:00 Emergency Sylvia Weeks [facility] [id number] [facility]
--- NOTE | 2024-03-22 20:30 | EDPHYS ---
Physician Documentation [facility] Name: Charles Wood Age: 39 yrs Sex: Male : 1985 Arrival Date: 03/22/2024 Time: 19:47 Bed IW7 Private MD: ED Physician Jakub Powell HPI: 03/22 20:41 This 39 yrs old Male presents to ER via Ambulatory with complaints of Insect rt Bite. 20:41 Patient presents to the ED with reported insect bite to the left thigh. Patient states rt that he tried to tha it with a needle, not much came out. Reports spreading erythema surrounding it. Denies other acute complaints at this time, symptoms are mild in severity, no other aggravating relieving factors.. Historical: - Allergies: 20:22 No Known Allergies; bm8 - Home Meds: 20:22 metformin 500 mg Oral tablet 1 tab 2 times per day [Active]; bm8 - PMHx: 20:22 Diabetes mellitus; bm8 - PSHx: 20:22 None; bm8 - Immunization history:: Adult Immunizations up to date. - Infectious Disease History:: Denies. - Social history:: Smoking status: Patient reports the use of cigarette tobacco products. ROS: 20:41 Constitutional: Negative for fever, chills, and weight loss, Cardiovascular: Negative rt for chest pain, palpitations, and edema, Respiratory: Negative for shortness of breath, cough, wheezing, and pleuritic chest pain, Abdomen/GI: Negative for abdominal pain, nausea, vomiting, diarrhea, and constipation, Neuro: Negative for headache, weakness, numbness, tingling, and seizure, 20:41 Skin: Positive for cellulitis, rash, Exam: 20:41 Constitutional: This is a well developed, well nourished patient who is awake, alert, rt and in no acute distress. Head/Face: Normocephalic, atraumatic. Chest/axilla: Normal chest wall appearance and motion. Nontender with no deformity. No lesions are appreciated. Cardiovascular: Regular rate and rhythm with a normal S1 and S2. No gallops, murmurs, or rubs. Normal PMI, no JVD. No pulse deficits. Respiratory: Lungs have equal breath sounds bilaterally, clear to auscultation and percussion. No rales, rhonchi or wheezes noted. No increased work of breathing, no retractions or nasal flaring. Abdomen/GI: Soft, non-tender, with normal bowel sounds. No distension or tympany. No guarding or rebound. No evidence of tenderness throughout. MS/ Extremity: Pulses equal, no cyanosis. Neurovascular intact. Full, normal range of motion. Neuro: Awake and alert, GCS 15, oriented to person, place, time, and situation. Cranial nerves II-XII grossly intact. Motor strength 5/5 in all extremities. Sensory grossly intact. Cerebellar exam normal. Normal gait. 20:41 Skin: Small scab noted on the left thigh with surrounding erythema of about a 2 cm radius, no fluctuance, drainable abscess. Vital Signs: 20:21 BP 148 / 96; Pulse 78; Resp 18; Temp 97.1; Pulse Ox 98% ; Weight 145.15 kg; Height 5 bm8 ft. 11 in. ; Pain 6/10; 20:21 Body Mass Index 44.63 (145.15 kg, 180.34 cm) bm8 20:21 Pain Scale: Adult bm8 Wilfred Coma Score: 20:27 Eye Response: spontaneous(4). Motor Response: obeys commands(6). Verbal Response: bm8 oriented(5). Total: 15. MDM: 20:28 Medical Screening Exam initiated rt 20:41 Differential Diagnosis Cellulitis. Data reviewed: vital signs, nurses notes. I rt considered the following discharge prescriptions or medication management in the emergency department Medications were administered in the Emergency Department. See MAR. Test considered but Not performed: Other Details Stable vital signs, only small area of cellulitis noted, labs, advanced imaging not indicated.. Care significantly affected by the following chronic conditions: Diabetes. Counseling: I had a detailed discussion with the patient and/or guardian regarding the historical points, exam findings, and any diagnostic results supporting the discharge/admit diagnosis, the need for outpatient follow up. Administered Medications: 20:45 Drug: Doxycycline PO 100 mg PO once Route: PO; bm8 20:45 Follow up: Response: No adverse reaction; Medication administered at discharge. bm8 Disposition Summary: 03/22/24 20:29 Discharge Ordered Notes: Location: Home rt Problem: new rt Symptoms: are unchanged rt Condition: Stable rt Diagnosis - Cellulitis to left lower extremity rt Followup: rt - With: Private Physician - When: 2 - 3 days - Reason: Discharge Instructions: - Discharge Summary Sheet rt - Cellulitis, Adult rt Forms: - Medication Reconciliation Form rt - Antibiotic Education rt - Prescription Opioid Use rt - Patient Portal Instructions rt - Leadership Thank You Letter rt Prescriptions: - Doxycycline Hyclate 100 mg Oral Tablet - take 1 tablet ORAL route every 12 hours; 20 tablet; Refills: 0, Product rt Selection Permitted Signatures: Jakub Powell MD MD rt Mg Zavala RN RN bm8 Corrections: (The following items were deleted from the chart) 20:24 20:22 PMHx: None; bm8 bm8
--- NOTE | 2024-03-22 20:30 | ER ---
Nurse's Notes [facility] Name: Charles Wood Age: 39 yrs Sex: Male : 1985 Arrival Date: 03/22/2024 Time: 19:47 Bed IW7 Private MD: Diagnosis: Cellulitis to left lower extremity Presentation: 03/22 20:21 Chief complaint: Patient states: i think i got bit by a spider. Coronavirus screen: At bm8 this time, the client does not indicate any symptoms associated with coronavirus-19. Ebola Screen: Patient negative for fever greater than or equal to 101.5 degrees Fahrenheit, and additional compatible Ebola Virus Disease symptoms Patient denies exposure to infectious person. Patient denies travel to an Ebola-affected area in the 21 days before illness onset. No symptoms or risks identified at this time. Initial Sepsis Screen: Does the patient meet any 2 criteria? No. Patient's initial sepsis screen is negative. Does the patient have a suspected source of infection? No. Patient's initial sepsis screen is negative. Risk Assessment: Do you want to hurt yourself or someone else? Patient reports no desire to harm self or others. Onset of symptoms was March 21, 2024 at 18:00. 20:21 Method Of Arrival: Ambulatory 8 20:21 Acuity: DIVYA 4 bm8 Triage Assessment: 20:22 Bite description: bite sustained to medial aspect of left thigh by unk, animal bm8 information:. General: Appears in no apparent distress. comfortable, Behavior is calm, cooperative, appropriate for age. Pain: Complains of pain in medial aspect of left thigh Pain currently is 6 out of 10 on a pain scale. EENT: No deficits noted. No signs and/or symptoms were reported regarding the EENT system. Neuro: No deficits noted. Level of Consciousness is awake, alert, obeys commands, Oriented to person, place, time, situation, Appropriate for age. Cardiovascular: No deficits noted. Denies chest pain. Respiratory: Airway is patent Respiratory effort is even, unlabored. Derm: pt appears to have 2' diameter cellulitis in left thigh Reports possible spider bite. 20:29 Bite description: animal information: vaccination(s) is unknown. bm8 Historical: - Allergies: 20:22 No Known Allergies; bm8 - Home Meds: 20:22 metformin 500 mg Oral tablet 1 tab 2 times per day [Active]; bm8 - PMHx: 20:22 Diabetes mellitus; bm8 - PSHx: 20:22 None; bm8 - Immunization history:: Adult Immunizations up to date. - Infectious Disease History:: Denies. - Social history:: Smoking status: Patient reports the use of cigarette tobacco products. Screenin:27 [facility] ED Fall Risk Assessment (Adult) History of falling in the last 3 months, bm8 including since admission No falls in past 3 months (0 pts) Confusion or Disorientation No (0 pts) Intoxicated or Sedated No (0 pts) Impaired Gait No (0 pts) Mobility Assist Device Used No (0 pt) Altered Elimination No (0 pt) Score/Fall Risk Level 0 - 2 = Low Risk Oriented to surroundings, Maintained a safe environment, Educated pt \T\ family on fall prevention, incl call for assistance when getting out of bed, Assessed \T\ reinforced patient's understanding of fall precautions, Hourly rounding (assess needs \T\ fall precautionary measures) done, Used ambulatory aids as needed (educated on \T\ assisted with), Used gait belt as appropriate. Abuse screen: Denies threats or abuse. Nutritional screening: No deficits noted. Tuberculosis screening: No symptoms or risk factors identified. Assessment: 20:27 Reassessment: see triage note. bm8 20:29 Derm: Skin is intact, Skin is red. bm8 Vital Signs: 20:21 BP 148 / 96; Pulse 78; Resp 18; Temp 97.1; Pulse Ox 98% ; Weight 145.15 kg; Height 5 bm8 ft. 11 in. ; Pain 6/10; 20:21 Body Mass Index 44.63 (145.15 kg, 180.34 cm) bm8 20:21 Pain Scale: Adult bm8 Lincoln Coma Score: 20:27 Eye Response: spontaneous(4). Motor Response: obeys commands(6). Verbal Response: bm8 oriented(5). Total: 15. ED Course: 19:50 Patient arrived in ED. jj6 19:57 Jakub Powell MD is Attending Physician. rt 20:22 Triage completed. bm8 20:22 Arm band placed on left wrist. bm8 20:27 Mg Zavala, RN is Primary Nurse. bm8 20:27 Patient has correct armband on for positive identification. Bed in low position. Call bm8 light in reach. Side rails up X 1. Provided Education on: post er care. Client placed on continuous cardiac and pulse oximetry monitoring. NIBP monitoring applied. aircraft cylinder mechanic on. Pulse ox on. 20:27 No provider procedures requiring assistance completed. Patient did not have IV access bm8 during this emergency room visit. Administered Medications: 20:45 Drug: Doxycycline PO 100 mg PO once Route: PO; bm8 20:45 Follow up: Response: No adverse reaction; Medication administered at discharge. bm8 Medication: 20:27 VIS not applicable for this client. bm8 Outcome: 20:27 Discharged to home ambulatory, bm8 20:27 Condition: stable 20:27 Discharge instructions given to patient, family, Instructed on discharge instructions, follow up and referral plans. no drinking with medication, no driving heavy equipment, medication usage, safety practices, Demonstrated understanding of instructions, follow-up care, medications, Prescriptions given X 1, 20:29 Discharge ordered by . rt 20:46 Patient left the ED. bm8 Signatures: Kenya Diane jj6 Jakub Powell MD MD rt Mg Zavala, RN RN bm8 Corrections: (The following items were deleted from the chart) 20:24 20:22 PMHx: None; bm8 bm8
[2024-03-22] MEDS ORDERED: DOXYCYCLINE 100 MG CAP PO ONE (20:41)
[2024-03-22 20:52] VITALS: BP 148/96; TEMP 97.1; O2SAT 98
== END 2024-03-22 20:46 | disposition home or self-care (01) ==
LOC: ER 19:47
DX: L03.116 Cellulitis of left lower limb (principal)
CPT/HCPCS: 99284